=== PATIENT | female | born 1935 | race Caucasian/White ===

== ENCOUNTER 2020-01-05 12:08 | Emergency (ER) | payer MEDICARE, OTHER ==
[~2020-01-05] VITALS: Ht 157.5 cm; Wt 59.0 kg
[~2020-01-05 12:08] MED LIST: ASPI-1718 PO; ATOR40TA PO; GABA300C PO; LISI10TA11 PO; METF500T2 PO
[2020-01-05 12:36] VITALS: BP 134/82
--- NOTE | 2020-01-05 12:38 | NUR ---
TO LOBBY, VSS. AWAITING BED IN ED.
--- NOTE | 2020-01-05 13:55 | NUR ---
Patient ambulated to bed 9. RN evaluating patient at bedside.
[2020-01-05] MEDS ORDERED: NACL 0.9% 1,000 ML IV ONE (16:05)
[2020-01-05 16:12] VITALS: BP 130/80
--- NOTE | 2020-01-05 16:12 | NUR ---
84 Y/O F C/C DIARRHEA X 10 DAYS. PER PT HX OF DIVERTICULITIS, TAKES OMEPRAZOLE BUT NO LONGER FUNCTIONING. PT ALSO COMPLAINTS OF RUNNY NOSE X 10 DAYS. PER PT NKA. HX DIVERTICULITIS. RX OMEPRAZOLE. NO N/V. A/OX4. HYPERACTIVE BS. SIDE RAIL X1.
--- NOTE | 2020-01-05 16:12 | NUR ---
pt taken to xray via wheelchair
[2020-01-05 16:45] LABS: BASOPHILS # (AUTO) 0.1 K/uL (0.00-0.22); BASOPHILS % (AUTO) 0.7 % (0.0-2.0); EOSINOPHILS # (AUTO) 0.4 K/uL (0-0.4); EOSINOPHILS % (AUTO) 4.5 % (0.0-4.0); HEMATOCRIT 43.6 % (36-48); HEMOGLOBIN 14.2 g/dL (12.0-16.0); LYMPHOCYTES # (AUTO) 2.7 K/uL (2.5-16.5); LYMPHOCYTES % (AUTO) 31.5 % (20.5-51.1); MEAN CORPUSCULAR HEMOGLOBIN 28 pg (27-31); MEAN CORPUSCULAR HGB CONC 33 g/dL (33-37); MEAN CORPUSCULAR VOLUME 86.8 fL (80-94); MONOCYTES # (AUTO) 0.6 K/uL (0.8-1.0); MONOCYTES % (AUTO) 7.6 % (1.7-9.3); NEUTROPHILS # (AUTO) 4.7 K/uL (1.8-7.7); NEUTROPHILS % (AUTO) 55.7 % (42.2-75.2); PLATELET COUNT (AUTO) 218 K/uL (140-450); RED BLOOD CELL COUNT(AUTO) 5.02 MIL/uL (4.20-5.40); RED CELL DISTRIBUTION WIDTH 14.1 % (11.6-13.7); WHITE BLOOD COUNT (AUTO) 8.5 K/uL (4.8-10.8)
[2020-01-05 17:10] LABS: ALBUMIN 3.7 g/dL (3.4-5.0); ANION GAP 11.7 (8-16); ASPARTATE AMINOTRANSFERASE 23 U/L (15-37); CARBON DIOXIDE 27.2 mmol/L (21-32); CHLORIDE 104 mmol/L (98-107); CREATININE 0.7 mg/dL (0.6-1.3); GLUCOSE 78 mg/dL (74-106); POTASSIUM 3.9 mmol/L (3.5-5.1); SODIUM SERUM 139 mmol/L (136-145); TOTAL BILIRUBIN 0.3 mg/dL (0.0-1.0); UREA NITROGEN, BLOOD 14 mg/dL (7-18)
[2020-01-05] MEDS ORDERED: LEVOFLOXACIN 250 MG/D5 PREMIX 50 ML IV ONE (17:50)
[2020-01-05 18:14] LABS: APPEARANCE,URINE CLEAR (CLEAR); BILIRUBIN,URINE NEGATIVE (NEGATIVE); BLOOD, URINE NEGATIVE (NEGATIVE); COLOR,URINE YELLOW (YELLOW); LEUKOCYTE ESTERASE ,URINE TRACE (NEGATIVE); NITRITE, URINE NEGATIVE (NEGATIVE); UGLUCOSE NEGATIVE (NEGATIVE)
[2020-01-05 20:11] LABS: RBC,URINE 0-5 /HPF (0-5)
--- NOTE | 2020-01-08 12:11 | NUR ---
Late entry. Confirmed with RN that 0.9 NS IV completed at 1830
--- NOTE | 2020-01-08 12:12 | NUR ---
Keerthi completed at 193
== END 2020-01-05 18:00 | disposition home or self-care (01) ==
LOC: MED 12:08
DX: A09 Infectious gastroenteritis and colitis, unspecified (principal); R19.7 Diarrhea, unspecified; E11.9 Type 2 diabetes mellitus without complications; I10 Essential (primary) hypertension; Z79.82 Long term (current) use of aspirin; Z79.84 Long term (current) use of oral hypoglycemic drugs; Z79.899 Other long term (current) drug therapy
CPT/HCPCS: 36415; 71045; 74176; 80053; 81001; 85025; 87086; 96361; 96365; 99284; J1956